=== PATIENT | female | born 1995 | race Caucasian/White ===

== ENCOUNTER 2019-01-10 10:39 | Emergency (ER) | payer MEDICAID, OTHER, SELFPAY ==
[~2019-01-10] VITALS: Ht 162.6 cm; Wt 55.2 kg
[2019-01-10 13:56] VITALS: BP 106/63
== END 2019-01-10 13:59 | disposition home or self-care (01) ==
LOC: ED 12:01
DX: R10.84 Generalized abdominal pain (principal); F17.210 Nicotine dependence, cigarettes, uncomplicated
CPT/HCPCS: 36415; 76830; 80053; 81001; 81025; 83690; 85025; 87086; 99284

== ENCOUNTER 2019-06-12 23:13 | Emergency (ER) | payer SELFPAY ==
[~2019-06-12] VITALS: Ht 162.6 cm; Wt 60.7 kg
[2019-06-12 23:16] VITALS: BP 113/71
[2019-06-12] MEDS ORDERED: DEXAMETHASONE 4 MG TABLET PO ONE (23:30)
== END 2019-06-13 00:15 | disposition home or self-care (01) ==
LOC: ED 06-13 00:06
DX: J02.0 Streptococcal pharyngitis (principal)
CPT/HCPCS: 87880; 99283